=== PATIENT | female | born 1985 | race Caucasian/White ===

== ENCOUNTER 2016-11-07 08:45 | Emergency (ER) | payer BC ==
[~2016-11-07] VITALS: Ht 162.6 cm; Wt 65.6 kg
[2016-11-07 09:31] LABS: ADD MIUA? YES; BILIRUBIN NEGATIVE; BLOOD NEGATIVE; COLOR YELLOW ((YELLOW)); GLUCOSE (STRIP) NEGATIVE; KETONES NEGATIVE; LEUKOCYTES NEGATIVE; NITRITE NEGATIVE; PROTEIN (STRIP) NEGATIVE; SPECIFIC GRAVITY 1.017 (1.000-1.030); UROBILINOGEN 0.2 MG/DL (0.2-1.0)
[2016-11-07 09:35] LABS: BACTERIA RARE /HPF; EPITHELIAL CELLS 2+ /HPF; MUCUS TRACE /LPF; RED BLOOD CELLS 0-5 /HPF (0-5); WHITE BLOOD CELLS 0-5 /HPF (0-5)
[2016-11-07 09:49] LABS: MCH 28.5 PG (29.0-34.0); MCHC 33.7 G/DL (30.0-36.0); MCV 84.5 FL (83-99); MEAN PLAT.VOLUME 10.1 uM^3 (9.5-12.4); PLATELET COUNT 290 K/uL (156-360); RBC DIS.WIDTH-CV 12.3 % (11.8-14.6); RBC DIS.WIDTH-SD 37.8 % (39-53); RED BLOOD COUNT 4.85 M/uL (3.80-5.20)
[2016-11-07 10:00] LABS: CHLORIDE 105 mEq/L (99-109); POTASSIUM 3.8 mEq/L (3.7-5.4); SODIUM 141 mEq/L (136-147)
[2016-11-07 10:02] LABS: GLUCOSE 85 mg/dL (70-99)
[2016-11-07 10:03] LABS: ANION GAP 8 MEQ/L (2-14)
[2016-11-07 10:04] LABS: INFLUENZA A VIRAL ANTIGEN NEGATIVE; INFLUENZA B VIRAL ANTIGEN NEGATIVE
[2016-11-07 10:06] LABS: GFR ESTIMATE (CALCULATED) > 59 mL/min/
[2016-11-07 10:07] LABS: UREA NITROGEN (BUN) 8 mg/dL (9-23)
[2016-11-07 10:10] VITALS: BP 115/70
[2016-11-07] MEDS ORDERED: ZOFRAN ODT4 MG PO (10:12)
== END 2016-11-07 10:34 | disposition home or self-care (01) ==
LOC: EME 08:45
PROVIDERS: Nurse Practitioner Family
DX: B34.9 Viral infection, unspecified (principal); J02.0 Streptococcal pharyngitis
CPT/HCPCS: 71020; 80048; 81003; 85027; 87502; 99281; 99284